=== PATIENT | female | born 2000 | race Caucasian/White ===

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

== ENCOUNTER 2020-10-03 16:11 | Emergency (ER) | payer OTHER ==
[~2020-10-03 16:11] MED LIST: KEFLEX CAP 500500 MG PO; PRENATAL TABLE1 EAC1 PO
[2020-10-03 18:47] LABS: RED BLOOD COUNT 5.51 M/UL (4.00-5.10)
[2020-10-03 18:57] LABS: BUN/CREATININE RATIO 16 (0-10)
[2020-10-03] MEDS ORDERED: ZOFRAN ODT 4 MG4 MG SL (21:49)
[2020-10-03] MEDS ORDERED: CEPHALEXIN500 MG PO (21:49)
== END 2020-10-03 22:05 | disposition home or self-care (01) ==
LOC: ER1 16:11
PROVIDERS: Emergency Medicine
DX: A08.4 Viral intestinal infection, unspecified (principal)
CPT/HCPCS: 80053; 81001; 83690; 85025; 96374; 96375; 99284; J1885; J2405

== ENCOUNTER 2021-07-18 08:24 | Emergency (ER) | payer OTHER ==
[~2021-07-18 08:24] MED LIST changes: +CEPHALEXIN500 MG PO; +ZOFRAN ODT 4 MG4 MG SL
[2021-07-18] MEDS ORDERED: NAPROSYN500 MG PO (09:20)
== END 2021-07-18 09:30 | disposition home or self-care (01) ==
LOC: ER1 08:24
DX: S90.02XA Contusion of left ankle, initial encounter (principal); W20.8XXA Other cause of strike by thrown, projected or falling object, initial encounter; Y93.89 Activity, other specified; Y92.512 Supermarket, store or market as the place of occurrence of the external cause; Y99.0 Civilian activity done for income or pay
CPT/HCPCS: 73590; 73610; 99283